=== PATIENT | male | born 2000 ===

== ENCOUNTER 2020-07-14 15:54 | Outpatient (REF) | payer OTHER, SELFPAY ==
[2020-07-14 17:17] LABS: MANUAL DIFF FLAG NO
[2020-07-14 17:21] LABS: Basophils Absolute Auto 0.1 X10*3/uL (0.0-0.2); Basophils Percent Auto 0.6 % (0-2); Eosinophils Absolute Auto 0.3 X10*3/uL (0.0-0.4); Eosinophils Percent Auto 2.1 % (0-4); Hematocrit 45.7 % (42-52); Hemoglobin 14.6 g/dl (14.0-18.0); Imm Gran Abs Auto 0.04 X10*3/uL (0.00-0.03); Imm Gran Pct Auto 0.3 % (0.0-0.4); Lymphocytes Absolute Auto 3.2 X10*3/uL (1.2-4.9); Lymphocytes Percent Auto 20.9 % (20-40); Mean Corpuscular HGB Conc 31.9 g/dl (31.0-36.0); Mean Corpuscular Hemoglobin 28.6 pg (27.0-33.0); Mean Corpuscular Volume 89.4 fL (80-98); Mean Platelet Volume 9.2 fL (9.4-12.4); Monocytes Absolute Auto 0.8 X10*3/uL (0.1-1.2); Monocytes Percent Auto 5.3 % (2-11); Neutrophils Absolute Auto 10.7 X10*3/uL (2.0-8.3); Neutrophils Percent Auto 70.8 % (45-73); Platelet Count 384 X10*3/uL (160-400); Red Blood Count 5.11 X10*6/uL (4.60-5.80); Red Cell Distribution Width 11.9 % (11.0-16.0); White Blood Count 15.1 X10*3/uL (4.8-10.8)
[2020-07-14 17:30] LABS: Estimated Average Glucose 103 mg/dL; Hemoglobin A1c % 5.2 %
[2020-07-14 17:45] LABS: Alanine Aminotransferase 9 U/L (0-40); Albumin Level 4.8 g/dL (3.5-5.0); Alkaline Phosphatase 51 U/L (39-117); Anion Gap 14 (12-20); Aspartate Amino Transferase 20 U/L (5-37); Bilirubin Total 0.4 mg/dL (0.0-1.0); Blood Urea Nitrogen 10 mg/dL (9-16); Calcium 9.8 mg/dL (8.4-10.2); Carbon Dioxide 27 mmol/L (22-29); Chloride 106 mmol/L (96-108); Cholesterol 176 mg/dL; Estimated Glomerular Filt Rate > 60; Glucose Random 89 mg/dL (60-115); HDL Cholesterol 48 mg/dL; Iron 67 mcg/dL (45-160); LDL Cholesterol Calculated 106 mg/dl; Percent Iron Saturation 24 % (15-50); Potassium 4.3 mmol/L (3.3-5.1); Sodium 143 mmol/L (135-145); Total Iron Binding Capacity 281 mcg/dL (228-428); Total Protein 7.9 g/dL (6.5-8.0); Triglycerides 113 mg/dL; Unsaturated Iron Binding 214 ug/dL
[2020-07-14 18:06] LABS: Ferritin 142 ng/mL (20-250); Thyroid Stimulating Hormone 0.74 uIU/mL (0.32-4.0)
[2020-07-14 18:16] LABS: Folate 9.9 ng/mL (> or = 4.0); Vitamin B12 431 pg/mL (200-900)
== END 2020-07-14 15:55 | disposition home or self-care (01) ==
LOC: HO.LAB 15:54
PROVIDERS: Visit Provider Clinical Nurse Specialist Psychiatric/Mental Health, Adult
DX: F33.2 Major depressive disorder, recurrent severe without psychotic features (principal)
CPT/HCPCS: 36415; 80053; 80061; 82607; 82728; 82746; 83036; 83540; 83735; 84439; 84443; 85025

== ENCOUNTER 2020-07-20 11:45 | Outpatient (RCR) | payer OTHER, SELFPAY ==
[2020-07-08 12:26] VITALS: BMI 23.1
--- NOTE | 2020-07-08 13:45 | PC.ADMIT ---
Patient is a 19 year old male who was taken to [facility] by his fiance' d/t increase in depression with SI and vague plan to hang himself. Patient reports no intent to do this. He reported feeling better after talking to crisis and agreed to the plan to attend [facility] for more support. Patient reports feeling good about coming to PHP and getting help for his mental health issues. Reports stressors with a roomate over issues with COVID precautions as patient felt roomate was putting him at risk and that made patient feel increasingly anxious. Patient has since moved in with his Fiance and is feeling better as a result. Patient is in his last year in college and reports low motivation regarding class work. Patient stated he is going to drop 2 classes and complete them over the summer. Talked about patients heavy marijuana use contributing to his symptoms and patient reports he has cut down his use and only will use at HS. Talked about the mental and physical effects of heavy use. Patient stated he is here as he, suffered for too long with depression and anxiety without help . Patient denied current SI. Asked who he could contact if he was feeling unsafe and he stated his partner or [facility]. Patient gave verbal permission to email him a copy of his safety plan. Patient's medications reconciled with patient and patient's pharmacy. Patient prescribed Sertraling 75 mg daily however he is only taking 25 mg currently as he is worried it will cause SI. Also stated that he is prescribed Adderal PRN and he feels the medication is too strong as when he has taken it it makes him feel, too zoned out or too talkative . Carina read.
--- NOTE | 2020-07-08 16:08 | HO.PS.ADMBH ---
HPI Chief Complaint: depression Sources of Information: patient interviewed, chart reviewed and crisis/core team assessment reviewed HPI Narrative: 19 yo male, referred by [facility] crisis team. 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 Depression is constant-does not recall ever feeling well-will have increased anxiety when depression increases. Reports a decrease in appetite-usually 2 meals per day; variable sleeping patterns, latency sx and difficulty awakening. He is limiting screen time and some nights he had nightmares and resulting cold sweats . States he does not feel rested and it takes 1-2 hours to get going each day. Reports sx presence since his teens, initiating treatment at age 18. Reports SIBS-cutting thighs, skin picking, head banging. Denies AVTO perceptions, Denies hx of rosa, hypomania, OCD sx. Possible precipitants-recent disagreement with a room-mate regarding life habits in the context of COVID. Pt could not resolve this and has moved in with jorgito and 2 new room-mates. Pt reports ADHD symptoms and would like to be tested for this. Target sx for meds-anxiety, amotivation. Using meditation for sleep and does improve he believes in summer season. Past Psychiatric History: In Pt: Denies Out Pt: No current providers PCP does meds No hx of PHP Trials: Adderall 10 mg daily prn-feels zoned and talks more Sertraline 75 mg-became suicidal on 50 mg, currently taking 25 mg- states he has not had much benefit and questions when SI on Sertraline if it was from increase in psychosocial stress. Medical Evaluation Reviewed: No no eval available to review. [facility] Medical History (Updated 07/08/20 @ 16:48 by Zayda Kraft, MORTGAGE LOAN COUNSELOR) ADHD Asthma Recurrent major depression-severe Seasonal affective disorder Tinnitus Narrative: Hx TBI- age 8-13 a few , age 10-13 one serious with medical care, 2 in high school-all from playing football and basketball. (Fourth-Tenth grade). Pt worries about CTE. Denies seizure hx. Pt falls frequently with poor balance he reports Family History: Depression-undiagnosed and untreated but present Alcoholism Social History: Student-currently in his last semester-has taken a break to treat symptoms and will complete summer 2020 Substance History: hx of nicotine, 1-2 daily, has used LSD, mushrooms, percocet, cocaine, alcohol experimentally. Has [facility] from PCP-had been using all day, now only at night No hx of detox, rehab. Trauma History: Yes. Diagnostics Vital Signs (24Hr): Body Mass Index 23.1 Meds/Allergies Meds Narrative: -Sertraline 25 mg daily -Advair -Albuterol Allergies Allergies Allergy/AdvReac Type Severity Reaction Status Date / Time No Known Allergies Allergy Verified 07/08/20 08:19 Mental Status Exam Mental Status Exam Patient Appearance: Appropriate Patient Orientation: Person, Place, Time and Situation Level of Consciousness: Awake and Alert Patient Behavior: Appropriate, Talkative, Cooperative and Anxious Mood Description: Depressed and Anxious Affect Description: Flat Patient Cognition Impaired: No Ability to Follow Directions: Good Speech Pattern: Clear, Appropriate and Spontaneous Speech Memory Description: Intact Hallucinations: None Delusions: Not Present Thought Process: Intact and Rumination Thought Content: positive for Intact Depressive Symptoms: Increased Anxiety, Difficulty Sleeping and Changes in Appetite Judgement: Good Assessment & Plan Assessment & Plan (1) Recurrent major depression-severe: Status: Acute Code(s): F33.2 - Major depressive disorder, recurrent severe without psychotic features Assessment and Plan: -Discontinue Sertraline 25 mg daily -Lexapro 5 mg daily -Labs -Continue SAD discussion-light therapy (2) ADHD: Status: Acute Code(s): F90.9 - Attention-deficit hyperactivity disorder, unspecified type Assessment and Plan: -Pt asks for eval. I have asked Suad Cruz RN to schedule per his insurance guidelines as an out patient. Discussed with pt Dr. Marin's work and encouraged him to look on his web site for inventories to complete. (3) Falls: Status: Acute Code(s): W19.XXXA - Unspecified fall, initial encounter Assessment and Plan: Will refer for neuro consult-Suad Cruz RN to work on this referral per insurance guidelines. Hx several TBI;s, poor balance Certification I certify that partial hospital treatment is medically necessary due to the symptoms and problems resulting from the patient's mental illness and the failure to treat the patient at the partial hospital level of care would likely result in the patient requiring inpatient psychiatric care which could not be prevented at a less intensive level of care. Telehealth Telehealth Location of provider rendering services: practice address Location of patient: address on file Patient Identification confirmed using: Name, : Yes Telehealth method: video Patient verbally consented to treatment: Yes Patient verbally consented to billing insurance company: Yes Patient informed of any privacy concerns related to visit: Yes Time spent with patient (mins): 35
--- NOTE | 2020-07-13 09:39 | PC.NURSE ---
Called pt as he did not attend community meeting. He reported oversleeping due to nightmares. He reported being safe and he would return to groups tomorrow.
--- NOTE | 2020-07-13 11:51 | PC.NURSE ---
Pt did not show up for treatment today. I called him and left a message.
--- NOTE | 2020-07-13 15:38 | PC.NURSE ---
Pt called back and reported he did not come in to PHP today because he did not sleep well last night due to nightmares. He said hes feeling much better now after eating, and he has plans to go for a walk.
--- NOTE | 2020-07-14 14:48 | HO.PHPPROGNO ---
Subjective Subjective Date of Service: 07/14/20 Reason For Visit: depression Interim History: Pt reports not taking lexapro because he is not aware if it is in pharmacy or not but has not reached out to pharmacy to ask. He reports difficulty falling and staying asleep. He reports nightmares. He reports having anxiety attacks every week. He describes those as hypervigilance, tachycardia, increased anxious mood. We discussed starting prazosin for nightmares. 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 Medication Compliance: No Side effects from medications: No Attending Groups: Yes Review of Systems Review of Systems Yes all other systems are reviewed and are negative Mental Status Exam Mental Status Exam Patient Appearance: Appropriate Patient Orientation: Person, Place, Time and Situation Level of Consciousness: Awake and Alert Patient Behavior: Appropriate, Talkative, Cooperative and Anxious Mood Description: Depressed and Anxious Affect Description: Flat Patient Cognition Impaired: No Ability to Follow Directions: Good Speech Pattern: Clear, Appropriate and Spontaneous Speech Memory Description: Intact Diagnostics Vital Signs (24Hr): Body Mass Index 23.1 Assessment & Plan Assessment & Plan (1) Recurrent major depression-severe: Status: Acute Code(s): F33.2 - Major depressive disorder, recurrent severe without psychotic features Assessment and Plan: -Discontinue Sertraline 25 mg daily -Lexapro 5 mg daily - Start prazosin 1mg po qhs for nightmares. (2) ADHD: Status: Acute Code(s): F90.9 - Attention-deficit hyperactivity disorder, unspecified type Assessment and Plan: -Pt asks for eval. I have asked Suad Cruz RN to schedule per his insurance guidelines as an out patient. Discussed with pt Dr. Marin's work and encouraged him to look on his web site for inventories to complete. (3) Falls: Status: Acute Code(s): W19.XXXA - Unspecified fall, initial encounter Assessment and Plan: Will refer for neuro consult-Suad Cruz RN to work on this referral per insurance guidelines. Hx several TBI;s, poor balance Certification I certify that partial hospital treatment is medically necessary due to the symptoms and problems resulting from the patient's mental illness and the failure to treat the patient at the partial hospital level of care would likely result in the patient requiring inpatient psychiatric care which could not be prevented at a less intensive level of care. Greater than 50% of the session was spent on counseling and/or coordination of care Discharge Plan Discharge Attending provider: Markie Hilton Medications: New escitalopram oxalate [Lexapro] 5 mg tablet 5 mg PO DAILY Qty: 14 RF: 0 prazosin 1 mg capsule 1 mg PO BEDTIME Qty: 14 RF: 0 Discontinued dextroamphetamine-amphetamine [Adderall] 10 mg Tablet 10 mg PO DAILY PRN (Reason: concentration) RF: 0 sertraline 25 mg Tablet 25 mg PO DAILY RF: 0 No Action fluticasone propion-salmeterol [Advair Diskus] 250-50 mcg/dose Blister With Device 1 inh INHALATION BID RF: 0 albuterol sulfate 90 mcg/actuation Hfa Aerosol Inhaler 2 puff INHALATION Q4H PRN (Reason: Shortness Of Breath) RF: 0 Telehealth Telehealth Location of provider rendering services: practice address Location of patient: address on file Patient Identification confirmed using: Name, : Yes Telehealth method: video Patient verbally consented to treatment: Yes Patient verbally consented to billing insurance company: Yes Patient informed of any privacy concerns related to visit: Yes Time spent with patient (mins): 20
--- NOTE | 2020-07-14 15:05 | PC.NURSE ---
I called and LM for pt. Asked him to pls call re: schedule and aftercare, and to talk about how the program is going for him.
--- NOTE | 2020-07-15 14:39 | PC.NURSE ---
I received a call from Cathi Cao, clinician at [facility], and I spoke to her. I gave a clinical update. She informed me that pt will need a referral to a community mental health agency, as he doesn't really see a therapist at [facility] and is in need of a team of treaters. She also said pt can call [phone] for help with disability services or if he is in need of amendments to his classwork, or to talk about a medical withdrawal if needed. I then called and spoke to pt, and he agreed to be referred to [facility], and gave permission for that. I also informed him about [facility] to explore support groups, and we spoke about length of stay. Pt will tentatively be discharged on 07/27/20.
--- NOTE | 2020-07-18 09:43 | PC.NURSE ---
Pt did not attend community meeting. Pt reported waking up to the call this morning. He reported having a COVID shot yesterday and not sleeping well because of it.
--- NOTE | 2020-07-19 10:48 | PC.NURSE ---
Spoke to Nia from Dr Harmon's office and reviewed patient hx of falling, reported balance issues, and feeling dizzy at times. 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 Reviewed whether patient could benefit from a referral from Dr Harmon to a neurologist to f/u. Also asked if Dr Harmon would be willing to continue patient medications that were prescribed at [facility] until patient has an appointment with providers at [facility]. Nia called me back and stated that Dr Harmon will conntinue the medications that were prescribed at [facility] and he did not think patient would benefit from a neurology referral at this time. Spoke to patient and he is aware of the above information. Asked patient if he heard from Dr Tipton office regarding Neuro psych testing. He stated the office called him and left a message and he will call them today to f/u.
--- NOTE | 2020-07-19 13:31 | PC.NURSE ---
Pt was asked to leave group by a clinician due getting into a heated discussion with another pt regarding a tattoo that was making him feel uncomfortable. Called pt to check in and discuss how to resolve the issue. Pt reported feeling persecuted because the clinician asked him to leave and not the other pt. Attempted to explain that the clinician saw it was upsetting and wanted someone to provide one on one processing if he wanted. Pt called this worker racist because this worker asked how we could help resolve the issue. Pt reported he could not be in another group with an individual that has that tattoo. Pt also reported that during the discussion with the other pt the other pt reported it was an [employer] logo but pt did not believe him. Informed pt that we could not discharge someone because of tattoo, especially if he reported it was logo, but we could ask for it to be covered. Pt reported still not being able to be in group with the other pt with the tattoo and that we were siding with the other pt. Attempted to explain that everyone is here for their own mental health issues and needs treatment just the same. Pt then reported If I was in charge there and he (other pt) was depressed, I would tell him to go take care of himself alluding to the other pt committing suicide. Pt instructed me to ask black coworkers how they would feel about the situation. Informed pt that his clinician would reach out to him this afternoon.
--- NOTE | 2020-07-19 15:35 | PM.EVENT ---
Event Note Date of Service: 07/19/20 Event Note: Pt was scheduled to meet with TW at 2:15pm for medication review. Pt was called at the scheduled time. He reports this time is not appropriate for him. He will contact Suad Cruz RN to discuss scheduling another time to meet. He reports just having a medication appointment in out patient and may not need to have another.
--- NOTE | 2020-07-20 13:54 | PC.NURSE ---
With patient's permission, I called and put in a referral for [facility]. They took demographic information and said they will call pt with intake information for a therapist and for a medication provider.
--- NOTE | 2020-07-20 14:36 | PC.NURSE ---
Ezio had an appointment with the prescriber Carina Kraft APRN at 14:15 on 07/19/20. I sent out the email that morning. Carina Kraft APRN said that patient did not show up to the appointment and did not call staff. Patient emailed me this morning saying he missed the email yesterday and was busy during the appointment. Staff stated that patient was at the store at the time of his appointment. I spoke to Ezio and told him if we had a cancelation I would fit him in however appointments with the provider as of now are booked for the rest of the week. I told him if I could not fit him in this week I would schedule him early next week.
--- NOTE | 2020-07-20 15:10 | PC.NURSE ---
I spoke with the client after group to discuss the incident that happened yesterday between him and another client and was somewhat brought up again today by the other clients response to a question in group. Ezio was apparently upset and I asked to talk with him. He states that yesterday I was racist when I sent him out of group to call the parking supervisor when he said he was upset about another group members rico. I validated his feelings although I did explain that I sent him to speak with the commercial intelligence manager who could remedy the situation and I could not ask the other client to leave because I did not have the authority to do so. Ezio was upset and stated that I was smug and racist as was the program. He pointed out that there are no clinicians of color and that when he spoke to our nurse earlier today he was blamed for missing his appointment yesterday. He stated that he was speaking to someone because he was upset and she should not blame him for that. He stated that he would not be returning to the program.
--- NOTE | 2020-07-20 15:11 | PC.NURSE ---
I received a call from pt stating he is not planning to continue in [facility]. I called and spoke to him. He spoke to him. He thanked staff for help, and shared that he doesn't feel safe in group with a certain peer. I informed him that [facility] will be reaching out to him about scheduling an intake for therapy and for medication management.
--- NOTE | 2020-07-20 16:14 | PC.NURSE ---
I called and spoke to Cathi Cao at [facility], letting her know that pt has discharged and that a referral was placed at [facility].
--- NOTE | 2020-07-21 15:19 | PC.NURSE ---
Faxed d/c medication list to patient's PCP Dr Plummer on 07/21/20
== END 2020-07-20 23:55 | disposition left against medical advice (07) ==
LOC: HO.PHPA 11:45
PROVIDERS: Visit Provider Psychiatry & Neurology Psychiatry
DX: F33.2 Major depressive disorder, recurrent severe without psychotic features (principal); F90.9 Attention-deficit hyperactivity disorder, unspecified type; Z87.820 Personal history of traumatic brain injury; Z91.81 History of falling
CPT/HCPCS: 90791; 90853